=== PATIENT | male | born 1980 | race African-American/Black ===

== ENCOUNTER → 2024-12-28 07:02 | Outpatient (CLI) | payer OTHER, SELFPAY ==
--- NOTE | 2024-12-28 07:33 | DI.MRI.S_ITS ---
PROCEDURE: MR KNEE RT WO CON INDICATIONS: Injury to right knee TECHNIQUE: Noncontrast sagittal PD fast spin echo and T2 fast spin echo with fat saturation, sagittal 3-D FLASH with fat saturation; coronal T1 spin echo and PD fast spin echo with fat saturation, and axial PD fast spin echo with fat saturation through the knee. COMPARISON: None. FINDINGS: Image quality: Excellent. Menisci: In the medial meniscus, there is high-grade, radial tear of the posterior horn (11:25), with interstitial extension to the posterior root. There is mild extrusion of the medial meniscus body. The lateral meniscus is unremarkable. Cruciate ligaments: The anterior and posterior cruciate ligaments appear intact. Medial structures: Focal full-thickness tear of the proximal MCL, about the femoral insertion (09:22). Lateral structures: The lateral collateral ligament, long and short heads of the biceps femoris tendon appear intact. The popliteus tendon appears normal; the popliteofibular ligament appears intact. The posterosuperior and anteroinferior popliteomeniscal fascicles appear intact. The arcuate and fabellofibular ligaments appear intact, on either side of the lateral inferior geniculate artery. Iliotibial band appears normal. Anterior structures: The quadriceps tendon is unremarkable. Mild tendinosis of the proximal patellar tendon. Mild suprapatellar fat pad edema. Alignment of the patellofemoral compartment is anatomic. The medial and lateral patellofemoral ligaments are intact. Bones and cartilage: The cartilage of the patellofemoral ligaments are well maintained. In the medial compartment, there is mild chondral irregularity in the weight-bearing portion of the medial femoral condyle. The cartilage of the lateral compartment is well maintained. 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 No acute fracture. Joint space: Small knee effusion. Trace popliteal cyst. Popliteal vasculature is unremarkable. No intra-articular body. Mild subcutaneous edema of the posterior distal thigh, nonspecific. IMPRESSION: 1. High-grade radial tear of the posterior horn of the medial meniscus. 2. Focal full-thickness tear of the proximal MCL. 3. Mild chondrosis of the medial compartment. 4. 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 Dictated by: Julissa Rios M.D. on 12/28/2024 at 15:11 Approved by: Julissa Rios M.D. on 12/28/2024 at 15:23
== END ==
LOC: MRI 07:03
PROVIDERS: Referring Provider Family Medicine Sports Medicine; Visit Provider Family Medicine Sports Medicine
DX: S83.241A Other tear of medial meniscus, current injury, right knee, initial encounter (principal); S83.411A Sprain of medial collateral ligament of right knee, initial encounter; M94.261 Chondromalacia, right knee; M87.851 Other osteonecrosis, right femur; M87.861 Other osteonecrosis, right tibia; M87.88 Other osteonecrosis, other site
CPT/HCPCS: 73721

== ENCOUNTER → 2025-05-03 06:25 | Outpatient (CLI) | payer OTHER, SELFPAY ==
--- NOTE | 2025-05-03 06:28 | DI.US.S_ITS ---
PROCEDURE: US RENAL DOPPLER INDICATIONS: UNCONTROLLED HYPERTENSION TECHNIQUE: Real time scanning was performed of both kidneys, followed by Color and pulsed Doppler interrogation of the renal vessels. COMPARISON: None. FINDINGS: Technically suboptimal exam secondary to lack of good acoustic window/patient body habitus. Aortic peak systolic velocity: 83 cm/s. Right side: Quesada-scale imaging: Kidney is 11.4 cm long. No hydronephrosis. No nephrolithiasis. Renal cortex is normal in echogenicity. No suspicious solid renal masses. Proximal renal artery peak systolic velocity: 106 cm/s. Mid renal artery peak systolic velocity: Not seen cm/s. Distal renal artery peak systolic velocity: Not seen cm/s. Renal vein: Patent, without thrombus. Peak renal/aortic ratio (RAR): 1.3 Intraparenchymal arterial waveforms are normal. Resistive indices are normal. Left side: Quesada-scale imaging: Kidney is 12.3 cm long. No hydronephrosis. No nephrolithiasis. Renal cortex is normal in echogenicity. No suspicious solid renal masses. Proximal renal artery peak systolic velocity: 58 cm/s. Mid-renal artery peak systolic velocity: Not seen cm/s. Distal renal artery peak systolic velocity: Not seen cm/s. Renal vein: Patent, without thrombus. Peak renal/aortic ratio (RAR): 0.7 Intraparenchymal arterial waveforms are normal. Resistive indices are normal. IMPRESSION: Given limitations of the study, no direct or indirect sonographic evidence of renal artery stenosis. Normal renal parenchymal waveforms. Dictated by: Ophelia Alonso M.D. on 05/03/2025 at 13:00 Approved by: Ophelia Alonso M.D. on 05/03/2025 at 13:05
== END ==
LOC: US 06:27
PROVIDERS: Referring Provider Registered Nurse; Visit Provider Registered Nurse
DX: I10 Essential (primary) hypertension (principal)
CPT/HCPCS: 93975